=== PATIENT | male | born 1990 | race American Indian/Alaskan Native ===

== ENCOUNTER 2017-08-08 18:42 | Emergency (ER) | payer SELFPAY ==
--- NOTE | 2017-08-09 01:31 | Emergency Department Report ---
HPI - General Chief Complaint: Anxiety Time Seen by Provider: 08/08/17 23:01 - HPI HPI: Patient reported that he had a panic attack earlier today. He said he had a feeling that he cannot breathe. He said he also had a lump in his throat, chills and it happened after he was taking shape which is something to help him stop smoking. He reports he is feeling better now. Patient has a history of anxiety and asthma and said that he does not have a primary care physician buddies had several panic attack in the past. He is currently not on any medication. Denies any chest pain or shortness of breath. Denies any heart palpitation. Denies any fever. ED Past Medical Hx - Past Medical History Previous Medical History?: Yes Hx Asthma: Yes Additional medical history: Anxiety - Surgical History Past Surgical History?: No - Family History Family history: no significant - Social History Smoking Status: Current Some Day Smoker Substance Use Type: None - Medications Home Medications: Home Medications Medication Instructions Recorded Confirmed Last Taken Type hydrOXYzine PAMOATE [Vistaril] 25 mg PO Q8HR PRN #9 capsule 08/09/17 Unknown Rx ED Review of Systems ROS: Stated complaint: SARA Other details as noted in HPI Comment: All other systems reviewed and negative Constitutional: chills. denies: fever Eyes: denies: eye discharge ENT: denies: ear pain, throat pain, congestion Respiratory: no symptoms reported Cardiovascular: denies: chest pain, palpitations, dyspnea on exertion, orthopnea , edema, syncope, paroxysmal nocturnal dyspnea Gastrointestinal: denies: abdominal pain, nausea, vomiting, diarrhea, constipation, hematemesis, melena, hematochezia Musculoskeletal: denies: back pain, joint swelling, arthralgia, myalgia Skin: denies: rash Neurological: denies: headache, weakness, numbness, paresthesias, confusion, abnormal gait Psychiatric: anxiety. denies: depression, auditory hallucinations, visual hallucinations, homicidal thoughts, suicidal thoughts Physical Exam - Physical Exam Vital Signs: Vital Signs 08/08/17 19:49 Temperature 97.7 F Pulse Rate 89 Respiratory 18 Rate Blood Pressure 129/78 O2 Sat by Pulse 96 Oximetry General: 27-year-old male well-nourished well-developed in no acute distress. Physical Exam: Head: Normocephalic, atraumatic, no abrasion, no bruising and no contusion. Eyes: Biateral pupils equal and reactive to light, bilateral EOM intact.. Bilateral conjunctival and sclera without injection, normal accommodation. Mouth: Moist, no pharyngeal exudate or erythema. No peritonsillar abscesses. Uvula is midline and oral airways patent. Neck: Supple, No Cervical adenopathy, full range of motion and no C-spine tenderness. No swelling or tracheal deviation normal reflexes Cardiovascular: S1, S2. Regular rate and rhythm. No murmur. Capillary refill is less then 3 seconds. Lungs: Clear to auscultate bilaterally. No rhonchi, wheezes or rales. No chest wall tenderness. No chest contusion. No bruising to chest. MSK: Strength 5/5 in all extremities. No joint deformity or crepitus. Normal inspection. Full range of motion to all extremities. No laceration, abrasion or ecchymotic area noted. Patient able to fully flex and extend bilateral knees without any difficulties. Bilateral knees nontender to palpate. Abdomen: Non-tender to palpate in all quadrants, no guarding or rebound tenderness, positive bowel sounds in all quadrants. No CVA tenderness. No hernia, bruit or mass. No rigidity or distention. Extremities: No clubbing, cyanosis or edema. +2 pulses. No neurovascular compromise Skin: Clean, dry and intact. No rash or lesions. Neurological: GCS at 15, Pt is alert and oriented 3 speech is clear . 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 Normal gait. Negative Romberg and no pronator drift. Normal Reflexes. No motor or sensory deficit Back: No vertebral tenderness, no paraspinal tenderness. The bend over and touch his toes without any difficulties. Ambulates without any difficulties. Psych: Normal mood and behavior. Patient is calm. ED Course Vital Signs 08/08/17 19:49 Temperature 97.7 F Pulse Rate 89 Respiratory 18 Rate Blood Pressure 129/78 O2 Sat by Pulse 96 Oximetry - Reevaluation(s) Reevaluation #1: 08/09/17 01:36 Patient reports panic attack earlier today which has resolved. ED Medical Decision Making - Medical Decision Making ED course: Patient here reports flare up of panic attack today. He said it has resolved while waiting to be seen. Patient is stable vital signs are stable he' s afebrile. Patient does not have a primary care physician. I discussed with him that he needs to [facility] with [facility] and also [facility] to manage his chronic anxiety. Discussed with him that weighed agent that caused is panic attack. Patient voiced understanding and he was discharged home in stable condition with prescription for Vistaril and to follow-up. Critical care attestation.: If time is entered above; I have spent that time in minutes in the direct care of this critically ill patient, excluding procedure time. ED Disposition Clinical Impression: Anxiety attack Disposition: DC-01 TO HOME OR SELFCARE Is pt being admited?: No Does the pt Need Aspirin: No Condition: Stable Instructions: Anxiety (ED) Additional Instructions: Please do not use substance that cause you to be anxious Increasing fluid intake Take Vistaril as prescribed this will help with anxiety until you can follow-up with mental health provider. Please avoid taking Vistaril while driving or operating heavy machinery with this medication causes drowsiness Follow-up with [facility] primary care Prescriptions: hydrOXYzine PAMOATE [Vistaril] 25 mg PO Q8HR PRN #9 capsule PRN Reason: Anxiety Referrals: [facility] [Outside] - 08/10/17 [facility] [Outside] - 08/10/17 Forms: Accompanied Note, Work/School Release Form(ED)
[2017-08-09 01:54] VITALS: BP 121/80
== END 2017-08-09 01:52 | disposition home or self-care (01) ==
LOC: ED 18:42
DX: R06.00 Dyspnea, unspecified (principal); Z53.21 Procedure and treatment not carried out due to patient leaving prior to being seen by health care provider